=== PATIENT | male | born 1985 | race African-American/Black ===

== ENCOUNTER 2020-10-25 10:58 | Emergency (ER) | payer SELFPAY ==
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
== END 2020-10-25 12:25 | disposition home or self-care (01) ==
LOC: MADERS 10:58
DX: S39.012A Strain of muscle, fascia and tendon of lower back, initial encounter (principal); S29.012A Strain of muscle and tendon of back wall of thorax, initial encounter; F17.210 Nicotine dependence, cigarettes, uncomplicated; J42 Unspecified chronic bronchitis; Z71.6 Tobacco abuse counseling; V49.9XXA Car occupant (driver) (passenger) injured in unspecified traffic accident, initial encounter
CPT/HCPCS: 72100; 99406

== ENCOUNTER 2023-07-21 08:57 | Emergency (ER) | payer SELFPAY ==
[2023-07-21] MEDS ORDERED: Ondansetron ODT 4 MG TAB ONE (09:35)
== END 2023-07-21 10:37 | disposition home or self-care (01) ==
LOC: MADERS 08:57
DX: J06.9 Acute upper respiratory infection, unspecified (principal); R11.2 Nausea with vomiting, unspecified; Z20.822 Contact with and (suspected) exposure to COVID-19
CPT/HCPCS: 71046; 87635; 87804; 99284; Q0162